=== PATIENT | male | born 1985 | race Caucasian/White ===

== ENCOUNTER 2023-02-21 13:43 | Emergency (ER) | payer OTHER, MEDICAID, SELFPAY ==
[2023-02-21 13:48] VITALS: BP 137/88; PULSE 85; RESP 18; TEMP 36.6; O2SAT 100; BMI 22.3
[2023-02-21 14:54] LABS: Add Manual Diff / Slide Review NO; Basophils Absolute Auto 0 /uL (0-100); Basophils Percent Auto 0.7 % (0-2); Eosinophils Absolute Auto 0 /uL (0-450); Eosinophils Percent Auto 0.6 % (2-4); Hematocrit 42.3 % (41-53); Hemoglobin 14.7 g/dL (13.5-17.5); Lymphocytes Absolute Auto 1700 /uL (1100-4500); Lymphocytes Percent Auto 34.4 % (25-40); Mean Corpuscular HGB Conc 34.7 % (30-36); Mean Corpuscular Hemoglobin 32.3 PG (26-34); Monocytes Absolute Auto 600 /uL (0-900); Monocytes Percent Auto 11.7 % (3-14); Neutrophils Absolute Auto 2700 /uL (1500-7000); Neutrophils Percent Auto 52.6 % (50-75); Platelet Count 201 X10^3/uL (150-400); Red Blood Cell Count 4.55 X10^6/uL (4.5-5.9); Red Cell Distribution Width 13.3 % (11.6-14.8); White Blood Cell Count 5.1 X10^3/uL (4.5-11.0)
[2023-02-21 15:10] LABS: Alanine Aminotransferase 20 IU/L (<50); Albumin 4.5 g/dL (3.5-5.0); Albumin Globulin Ratio 1.5 (1.0-2.8); Alkaline Phosphatase 46 U/L (38-126); Aspartate Aminotransferase 29 IU/L (17-59); BUN Creatinine Ratio 11.9 (6-22); Bilirubin Total 0.5 mg/dL (0.2-1.3); Blood Urea Nitrogen 10 mg/dL (9-20); Calcium 9.3 mg/dL (8.4-10.2); Carbon Dioxide 26 mmol/L (22-32); Chloride 102 mmol/L (98-107); Estimated Glomerular Filt Rate > 60 mL/min (>60); Glucose 108 mg/dL (70-100); HEMOLYSIS 21 (0-50); Lipase 94 U/L (23-300); Sodium 137 mmol/L (137-145); Total Protein 7.5 g/dL (6.3-8.2)
[2023-02-21 17:30] VITALS: BP 188/94; PULSE 70; RESP 20; O2SAT 100
--- NOTE | 2023-02-21 18:17 | ED_ITS ---
HPI - General Adult General Chief complaint: Abdominal Pain Stated complaint: [facility] Time Seen by Provider: 02/21/23 18:08 Source: patient Mode of arrival: Ambulatory History of Present Illness HPI narrative: Otherwise healthy 37-year-old gentleman who has been noting 6 days of abdominal pain in the upper abdomen for the most part. No point tenderness. He has been having occasional episodes of diarrhea but not reporting vomiting or blood in his stools. He has not had a fever. He is never had similar complaints. Describes it as a intermittent sharp stabbing to deep aching pain. There is no burning sensation. Related Data Previous Rx's Medication Instructions Recorded fluticasone propionate 50 1 spray intranasal BID #16 grams 05/19/22 mcg/actuation nasal spray,suspension (Flonase Allergy Relief) omeprazole 40 mg capsule,delayed 40 mg PO DAILY #14 caps 02/21/23 release Allergies Allergy/AdvReac Type Severity Reaction Status Date / Time morphine Allergy Intermediate Hives Verified 02/21/23 13:47 Review of Systems Review of Systems Narrative: Pertinent positive and negative findings as per HPI Patient History Social History Smoking Status: Current some day smoker Smoking Status: Current some day smoker tobacco type: cigarettes alcohol intake frequency: 0-2 drinks per day Substance Use Type: marijuana Exam Initial Vital Signs Initial Vital Signs: Vital Signs Temperature 98 F 02/21/23 13:48 Pulse Rate 85 02/21/23 13:48 Respiratory Rate 18 02/21/23 13:48 Blood Pressure 137/88 02/21/23 13:48 Pulse Oximetry 100 02/21/23 13:48 Oxygen Delivery Method Room Air 02/21/23 13:48 General: Healthy appearing, in mild distress. Able to give a complete and coherent history. Well-nourished well-developed HEENT: Moist mucous membranes, normal sclera with reactive pupils, Respiratory: Lungs are clear to auscultation, no wheezing no rales no rhonchi. Full and symmetrical air movement Cardiac: Regular rate and rhythm no murmurs no bruits Abdomen: Soft, tenderness in the upper abdomen more from the epigastrium to the right upper quadrant but overall quite diffuse without rebound or guarding, good bowel tones, no flank pain Skin: Warm and dry, no rashes Neurologic: Grossly neurologically intact with no obvious asymmetries or abnormalities Extremities: No trauma, well perfused Psych: Cooperative, appropriate insight and affect Course Orders Ordered: ED Orders 02/21/23 14:10 Complete Blood Count AUTO DIFF Stat Comprehensive Metabolic Panel Stat Lipase Stat 02/21/23 19:05 CT abdomen pelvis w con Stat Ondansetron HCl (Ondansetron 4 Mg Odt) 4 mg PO NOW PRN PRN Reason: Nausea And Vomiting Ondansetron HCl (Ondansetron 4 Mg/2 Ml Inj) 4 mg IV NOW PRN PRN Reason: Nausea And Vomiting Discontinued Medications Sodium Chloride (Normal Saline 0.9%) 1,000 mls @ 1,000 mls/hr IV BOLUS ONE Stop: 02/21/23 19:17 Last Infusion: 02/21/23 20:24 Dose: 0 mls/hr Documented By: Admin: 02/21/23 18:28 Dose: 1,000 mls/hr Documented By: MING Vital Signs Vital signs: Vital Signs - 8 hr 02/21/23 13:48 02/21/23 17:30 Temperature 98 F Pulse Rate 85 70 Respiratory Rate 18 20 Blood Pressure 137/88 188/94 H Pulse Oximetry 100 100 Oxygen Delivery Method Room Air Room Air Medical Decision Making Lab Data 02/21/23 14:10 02/21/23 14:10 Labs: Lab Results 02/21/23 02/21/23 Range/Units 14:10 14:10 WBC 5.1 (4.5-11.0) X10^3/uL RBC 4.55 (4.5-5.9) X10^6/uL Hgb 14.7 (13.5-17.5) g/dL Hct 42.3 (41-53) % MCV 93.0 (80-100) fL MCH 32.3 (26-34) PG MCHC 34.7 (30-36) % RDW 13.3 (11.6-14.8) % Plt Count 201 (150-400) X10^3/uL Neut % (Auto) 52.6 (50-75) % Lymph % (Auto) 34.4 (25-40) % [place] % (Auto) 11.7 (3-14) % Eos % (Auto) 0.6 L (2-4) % Baso % (Auto) 0.7 (0-2) % Neut # (Auto) 2700 (1815-6290) /uL Lymph # (Auto) 1700 (8327-6915) /uL [place] # (Auto) 600 (0-900) /uL Eos # (Auto) 0 (0-450) /uL Baso # (Auto) 0 (0-100) /uL Sodium 137 (137-145) mmol/L Potassium 4.0 (3.4-5.1) mmol/L Chloride 102 (98-107) mmol/L Carbon Dioxide 26 (22-32) mmol/L BUN 10 (9-20) mg/dL Creatinine 0.84 (0.66-1.25) mg/dL Estimated GFR > 60 (>60) mL/min BUN/Creatinine Ratio 11.9 (6-22) Glucose 108 H (70-100) mg/dL Calcium 9.3 (8.4-10.2) mg/dL Total Bilirubin 0.5 (0.2-1.3) mg/dL AST 29 (17-59) IU/L ALT 20 (<50) IU/L Alkaline Phosphatase 46 (38-126) U/L Total Protein 7.5 (6.3-8.2) g/dL Albumin 4.5 (3.5-5.0) g/dL Globulin 3.0 (1.7-4.1) g/dL Albumin/Globulin Ratio 1.5 (1.0-2.8) Lipase 94 (23-300) U/L Urine Dip Bedside Urine Glucose Negative Bedside Urine Bilirubin - Negative Bedside Urine Ketone - Negative Urine Specific [place] 1 Bedside Urine Occult Blood - Negative Bedside Urine pH 6 Bedside Urine Protein - Negative Bedside Urine Urobilinogen - Negative Bedside Urine Nitrite - Negative Bedside Urine Leukocytes - Negative Esterase Point of care testing: Urine Dip Bedside Urine Glucose Negative Bedside Urine Bilirubin - Negative Bedside Urine Ketone - Negative Urine Specific Jackson 1 Bedside Urine Occult Blood - Negative Bedside Urine pH 6 Bedside Urine Protein - Negative Bedside Urine Urobilinogen - Negative Bedside Urine Nitrite - Negative Bedside Urine Leukocytes - Negative Esterase MDM Narrative Medical decision making narrative: CC: Upper abdominal pain for 6 days Data collected from: patient, Social determinants of health that may influence the patients condition: Patient lives in the [facility] and does not currently have a primary care physician Differential considered: Gallbladder abnormalities, gastritis, gastroenteritis, colitis, constipation Exam documented above, pertinent findings include: Diffuse upper abdominal pain without rebound or guarding Lab Test results independently reviewed as above. Pertinent findings: CBC is unremarkable with no significant leukocytosis Chemistries are reassuring including liver studies electrolytes kidney function and lipase Imaging studies independently reviewed: CT scan of the abdomen does not show significant gallbladder or liver disease. Bowel is unremarkable with no acute appendicitis. There is a mention of nonspecific mild thickening of the pancreas. Patient is not particularly tender in the left upper quadrant and does not have an elevated lipase to suggest acute pancreatitis Treatments: Oral pantoprazole Discussion: 37-year-old gentleman with 6 days of diffuse right upper abdominal tenderness. There is no evidence of acute bacterial infection, appendicitis, cholecystitis, cholelithiasis, hydronephrosis, ureteral or nephrolithiasis. He has physiologic amounts of stool and I do not suspect that constipation is exacerbating his problem. There is no evidence of sepsis. All these findings reviewed with the patient. Recommended proton pump inhibitor for 14 days to see if this may be beneficial. If he is not improved he will need outpatient follow-up with the primary care physician. Questions are answered and he is safe for discharge home Discharge Plan Departure Patient Disposition: Home Clinical Impression: Abdominal pain Instructions: DI for Abdominal Pain-Adult Activity Restrictions/Additional Instructions: Thank you for coming in today After 6 days of pain I think your evaluation today was absolutely appropriate. Fortunately, I did not find any life-threatening abnormalities. Your lab work did not suggest any acute bacterial infections or anemia. Your kidney function, liver function, electrolytes were all appropriate. There is no evidence of pancreatitis. The CT scan that we did did not show any significant pathology. Given the pain in the mid upper portion of your abdomen and no evidence of galls tones or pancreatitis, the possibility of gastritis-irritation of the lining of your stomach or even trying to develop an ulcer is a possibility. I am going to suggest that you use omeprazole, a medicine that reduce stomach acid, for the next 14 days and see if this influences your pain at all. A prescription was electronically transmitted to [facility] If you are still having symptoms into the next week, you do need to see a primary care provider and continue looking for a more complete diagnosis. If you find that you are getting worse or develop any new symptoms, please feel free to return to the emergency department for further evaluation. Prescriptions: New omeprazole 40 mg capsule,delayed release(/YVON) 40 mg PO DAILY Qty: 14 0RF No Action fluticasone propionate [Flonase Allergy Relief] 50 mcg/actuation spray,suspension 1 spray intranasal BID Qty: 16 0RF Rx Instructions: administer into each nostril Referrals: Sera Madison PA-C [Primary Care Provider] - Stand Alone Forms: Patient Portal/API
[2023-02-21] MEDS: SODIUM CHLORIDE 0.9% 1,000 ML 1000 ML IV (18:28)
--- NOTE | 2023-02-21 19:05 | DI.CT.S_ITS ---
PROCEDURE: CT ABDOMEN PELVIS W CON INDICATIONS: 6 days severe pain, upper abd TECHNIQUE: After the administration of IV contrast, axial sections were acquired from the lung bases to the pubic symphysis. Coronal and sagittal reformats were performed. For radiation dose reduction, the following was used: automated exposure control, adjustment of mA and/or kV according to patient size. COMPARISON: None. FINDINGS: Image quality: Excellent. Lung bases: Unremarkable. Heart: Heart is normal in size. ABDOMEN: Liver: No mass lesion. Gallbladder: Within normal limits without calcified gallstones. Biliary ducts: No biliary ductal dilatation. Pancreas: The appendix is mildly thickened and fusiform in appearance. No periappendiceal fat stranding or fluid. No pancreatic duct dilatation. No discrete pancreatic mass identified. Spleen: Normal in size. Adrenal Glands: No adrenal nodules. Kidneys and Ureters: No hydronephrosis. Stomach and Bowel: Stomach, small bowel loops, and colon are normal in caliber and wall thickness. Peritoneum: No abnormal intraperitoneal fluid. No free air. Ventral Wall: No hernia. Abdominal Nodes: No retroperitoneal or mesenteric adenopathy by size criteria. Vessels: Aorta and inferior vena cava are normal in size. PELVIS: Pelvic Organs: Unremarkable. Bladder: Unremarkable. Pelvic Nodes: No enlarged lymph nodes. Miscellaneous: No inguinal hernias are seen. Bones: Visualized osseous structures demonstrate no suspicious focal lesions. IMPRESSION: 1. Mild thickening of the pancreas. The findings are nonspecific and may represent a normal variant. However, the appearance may also be seen in autoimmune IgG pancreatitis. Recommend correlation clinically. 2. Elsewhere, no definite acute intra-abdominal abnormality. Dictated by: Dennis Whyte M.D. on 02/21/2023 at 20:30 Approved by: Dennis Whyte M.D. on 02/21/2023 at 20:33
[2023-02-21 20:25] VITALS: PULSE 73; O2SAT 100
[2023-02-21 20:26] VITALS: BP 141/89; PULSE 67; O2SAT 100
[2023-02-21 20:30] VITALS: BP 143/96; PULSE 56; O2SAT 100
[2023-02-21] MEDS: PANTOPRAZOLE DR 20 MG TABLET PO (21:35)
[2023-02-21 21:38] VITALS: BP 142/89; PULSE 65; RESP 14; O2SAT 98
== END 2023-02-21 21:38 | disposition home or self-care (01) ==
PROVIDERS: Emergency Medicine; Emergency Provider Emergency Medicine; PCP Physician Assistant
DX: R10.10 Upper abdominal pain, unspecified (principal)
CPT/HCPCS: 36415; 74177; 80053; 81003; 83690; 85025; 99284; Q9967